=== PATIENT | female | born 1970 | race Caucasian/White ===

== ENCOUNTER 2022-12-03 23:18 | Emergency (ER) | payer MEDICAID ==
[~2022-12-03] VITALS: Ht 162.6 cm; Wt 91.1 kg
[2022-12-03 23:48] LABS: Basophils # (auto) 0.1 10 ^3/uL (0-0.2); Eosinophils # (auto) 0.2 10 ^3/uL (0-0.8); Eosinophils % (auto) 3.4 % (0.0-7.0); Hematocrit 37.4 % (36.0-46.0); Hemoglobin 12.5 g/dL (12.2-16.2); Lymphocytes # (auto) 1.9 10 ^3/uL (0.4-5.4); Lymphocytes % (auto) 36.5 % (10.0-50.0); Mean Corpuscular Hemoglobin 28.7 pg (28.0-32.0); Mean Corpuscular Hgb Conc. 33.4 g/dL (32.0-36.0); Mean Corpuscular Volume 85.9 fL (80.0-100.0); Monocytes # (auto) 0.5 10 ^3/uL (0-1.3); Monocytes % (auto) 9.8 % (0.0-12.0); Neutrophils # (auto) 2.6 10 ^3/uL (1.6-8.6); Neutrophils % (auto) 49.3 % (37.0-80.0); Nucleated Red Blood Cells % 0.1 %; Red Blood Cells 4.36 10^6/uL (4.0-5.20); Red Cell Distribution Width 14.2 % (11.8-14.3); White Blood Cell 5.3 10^3/uL (4.4-10.8)
[2022-12-03 23:57] LABS: Albumin 3.6 g/dL (3.4-5.0); Calcium 8.8 mg/dL (8.5-10.1); Potassium 3.1 mmol/L (3.5-5.1)
[2022-12-03 23:58] LABS: BUN/Creatinine Ratio 8.9 (10.0-20.0)
[2022-12-04 00:01] LABS: Bilirubin, Total 0.4 mg/dL (0.2-1.0); Total Protein 6.9 g/dL (6.4-8.2)
[2022-12-04 03:58] VITALS: BP 153/95
== END 2022-12-04 04:54 | disposition home or self-care (01) ==
LOC: ER 23:18
DX: R07.89 Other chest pain (principal)
CPT/HCPCS: 36415; 71045; 80053; 83880; 84484; 85025; 93005